=== PATIENT | female | born 1965 | race Caucasian/White ===

== ENCOUNTER → 2018-12-16 | Outpatient (CLI) | payer MEDICARE, MEDICAID ==
--- NOTE | 2018-12-16 09:42 | Diagnostic Imaging Report ---
PROCEDURE: MRI lumbar spine. TECHNIQUE: Multiplanar, multisequence MRI of the lumbar spine was performed without contrast. INDICATION: Back pain, left hip pain, groin pain, previous surgery. No priors. Posterior and interbody fusion with unilateral right-sided pedicular screws at L2-L3 and L4 have been performed. Anterior and interbody fusion at the L5-S1 level performed. Lower thoracic cord and conus appeared normal. The nerves of the cauda equina normally dispersed. There is no paravertebral mass, hemorrhage or fluid collection. T12-L1: This level and disc normal, there is no stenosis. L1-L2: There is disc desiccation, loss of disc stature, bulging disc material somewhat eccentric to the left without substantial foraminal or recess stenosis, the spinal canal widely patent. L2-L3: Osteophyte disc material results in at least mild degree of left-sided foraminal stenosis, the right foramen is widely patent and the spinal canal widely patent. L3-L4: Left-sided endplate osteophytes and disc material at least mildly stenosed the left neural foramen. The right foramen is widely patent. The spinal canal and recesses widely patent. L4-L5: Bulging disc material and mild endplate osteophytes result in mild left and mild to moderate right foraminal stenosis, the spinal canal widely patent. L5-S1: There is no appreciable stenosis of the canal, foramen or lateral recesses. IMPRESSION: 1. A multilevel posterior interbody and anterior fusions are aligned anatomically, no marrow edema fluid collection or acute osseous pathology. 2. No substantial canal stenosis, mild to moderate degrees of multilevel foraminal narrowing listed level by level above. Dictated by: Dictated on workstation # [id number]
== END ==
LOC: RAD 07:44
PROVIDERS: ATTEND Physician Assistant
DX: M48.061 Spinal stenosis, lumbar region without neurogenic claudication (principal); M25.78 Osteophyte, vertebrae; M51.26 Other intervertebral disc displacement, lumbar region; M51.36 Other intervertebral disc degeneration, lumbar region; Z98.1 Arthrodesis status
CPT/HCPCS: 72148

== ENCOUNTER → 2019-12-16 | Outpatient (CLI) | payer MEDICARE, MEDICAID | LOC: LABNPT 15:44 | PROVIDERS: ATTEND Family Medicine | DX: R30.9 Painful micturition, unspecified (principal) | CPT/HCPCS: 87088 ==

== ENCOUNTER → 2020-03-22 | Outpatient (CLI) | payer MEDICARE ==
[2020-03-22 08:55] LABS: ALKALINE PHOSPHATASE 79 U/L (40-136); BILIRUBIN,TOTAL 0.3 MG/DL (0.1-1.0); BUN/CREATININE RATIO 20; CALCIUM 10.1 MG/DL (8.5-10.1); CARBON DIOXIDE 30 MMOL/L (21-32); CHLORIDE 98 MMOL/L (98-107); CREATININE SERUM 0.65 MG/DL (0.60-1.30); GFR ESTIMATED > 60; GLUCOSE 89 MG/DL (70-105); POTASSIUM 4.5 MMOL/L (3.6-5.0); SODIUM 139 MMOL/L (135-145)
[2020-03-22 08:56] LABS: ALANINE AMINOTRANSFERASE 9 U/L (0-55); ALBUMIN 4.9 GM/DL (3.2-4.5); TOTAL PROTEIN 7.8 GM/DL (6.4-8.2)
[2020-03-22 10:27] LABS: BASOPHILS % (AUTO) 2 % (0-10); EOSINOPHILS % (AUTO) 1 % (0-10); HEMATOCRIT 43 % (35-52); LYMPHOCYTES % (AUTO) 33 % (12-44); MEAN CORPUSCULAR HEMOGLOBIN 30 PG (25-34); MEAN CORPUSCULAR HGB CONC 33 G/DL (32-36); MEAN CORPUSCULAR VOLUME 92 FL (80-99); MEAN PLATELET VOLUME 10.4 FL (7.4-10.4); MONOCYTES % (AUTO) 8 % (0-12); NEUTROPHILS % (AUTO) 56 % (42-75); PLATELET COUNT 307 10^3/uL (130-400); RED CELL DISTRIBUTION WIDTH 12.5 % (10.0-14.5); WHITE BLOOD COUNT 6.5 10^3/uL (4.3-11.0)
[2020-03-22 10:28] LABS: BASOPHILS # (AUTO) 0.1 10^3/uL (0.0-0.1); EOSINOPHILS # (AUTO) 0.1 10^3/uL (0.0-0.3); LYMPHOCYTES # (AUTO) 2.2 X 10^3 (1.0-4.0); MONOCYTES # (AUTO) 0.5 X 10^3 (0.0-1.0); NEUTROPHILS # (AUTO) 3.7 X 10^3 (1.8-7.8)
== END ==
LOC: LAB FS 07:18
PROVIDERS: ATTEND Family Medicine
DX: Z00.00 Encounter for general adult medical examination without abnormal findings (principal)
CPT/HCPCS: 36415; 80053; 85025

== ENCOUNTER → 2020-11-01 | Outpatient (CLI) | payer MEDICARE, MEDICAID ==
[~2020-11-01] MED LIST: GADOBUTROL 7.5 MMOL/7.5 ML (GADAVIST) VIAL IV ONE
--- NOTE | 2020-11-01 10:54 | Diagnostic Imaging Report ---
PROCEDURE: MRI lumbar spine with and without contrast. TECHNIQUE: Multiplanar, multisequence MRI of the lumbar spine was performed with and without contrast. INDICATION: Chronic low back pain and prior history of lumbar spine surgeries. COMPARISON: Comparison is made with prior MRI from 12/16/2018. FINDINGS: Posterior and interbody fusion with unilateral right-sided pedicle screws extend from L2 through L4. This does create moderate artifact. There is anterior interbody fusion at L5-S1. Vertebral body heights are maintained. No acute compression fracture is identified. There is some loss of height and signal intensity through L1-L2 disc as well as L4-L5 disc, compatible with degenerative disc disease. Conus is unremarkable at L1. T12-L1: Central canal and neuroforamina are widely patent. L1-L2: Central canal is widely patent. Left posterolateral broad-based disc/osteophyte complex is again noted which does result in some mild neuroforaminal narrowing. Right neuroforamen is patent. L2-L3: Mild left-sided neuroforaminal narrowing due to disc/osteophyte complex is again noted and similar to prior exam. Right neuroforamen and central canal are widely patent. L3-L4: Mild left neuroforaminal narrowing due to disc/osteophyte complex is noted, similar to prior exam. Right neuroforamen and central canal are widely patent. L4-L5: Disc/osteophyte complex does produce moderate right and mild left neuroforaminal stenosis, similar to prior exam. Central canal is patent. L5-S1: Central canal is widely patent. Neuroforamina appear widely patent. No abnormal enhancement is identified following contrast administration. Paraspinous tissues are unremarkable. IMPRESSION: Extensive postop changes through the lumbar spine, as described. There is multilevel neuroforaminal narrowing, described level by level above. Overall appearance is similar to exam from 12/16/2018. There is no central canal stenosis. No acute compression fracture is seen. No abnormal enhancement is identified. Dictated by: Dictated on workstation # [id number]
== END ==
LOC: RAD 08:00
PROVIDERS: ATTEND Family Medicine
DX: M48.062 Spinal stenosis, lumbar region with neurogenic claudication (principal); M25.78 Osteophyte, vertebrae
CPT/HCPCS: 72158

== ENCOUNTER → 2021-04-23 | Outpatient (CLI) | payer MEDICARE | LOC: LAB FS 09:55 | PROVIDERS: ATTEND Family Medicine | DX: M25.50 Pain in unspecified joint (principal) | CPT/HCPCS: 36415; 86038; 86431 ==

== ENCOUNTER → 2021-12-13 | Outpatient (CLI) | payer MEDICARE ==
[2021-12-13 22:12] LABS: AMPHETAMINES URINE QUAL DS Negative (Negative); BARBITURATES URINE QUAL DS Negative (Negative); BENZODIAZEPINE URINE QUAL DS Positive (Negative)
== END ==
LOC: LABNPT 14:55
PROVIDERS: ATTEND Family Medicine
DX: Z02.83 Encounter for blood-alcohol and blood-drug test (principal)
CPT/HCPCS: 80307

== ENCOUNTER → 2021-12-27 | Outpatient (CLI) | payer MEDICARE, OTHER ==
--- NOTE | 2021-12-27 10:58 | Diagnostic Imaging Report ---
INDICATION: Lower back pain. History of multiple spinal surgeries. COMPARISON: None FINDINGS: Frontal and lateral radiographic views of the lumbar spine were obtained and show postsurgical changes of previous fusion. Right-sided interpedicular screws are identified and appear well-seated. Posterior fusion jay is intact. Intervertebral disc spacers are also identified at L2-L3 and L3-L4 and appear appropriately positioned as well. Patient is also status post previous anterior fusion with intervertebral disc spacer placement at L5-S1. Hardware at this level appears appropriate. Static alignment of the lumbar spine shows slight dextro scoliotic deformity. AP static alignment, however is maintained. There is no evidence of jumped facets. Vertebral bodies are partially obscured secondary to overlying bowel gas on the lateral view, but vertebral body heights appear maintained. There is no convincing evidence of acute fracture. IMPRESSION: 1. Postoperative changes lumbar spine as described above. 2. No evidence of acute fracture or dislocation. Dictated by: Dictated on workstation # [id number]
== END ==
LOC: RAD 09:46
PROVIDERS: ATTEND Family Medicine
DX: Z02.71 Encounter for disability determination (principal); M54.50 Low back pain, unspecified; Z98.1 Arthrodesis status
CPT/HCPCS: 72100

== ENCOUNTER → 2023-04-01 | Outpatient (CLI) | payer MEDICARE, OTHER ==
--- NOTE | 2023-04-01 09:25 | Diagnostic Imaging Report ---
PROCEDURE: MRI lumbar spine. TECHNIQUE: Multiplanar, multisequence MRI of the lumbar spine was performed without contrast. INDICATION: Chronic lower back pain. Previous surgeries. COMPARISON: 11/01/2020 FINDINGS: Patient is status post previous 360 fusion of L1-L3. Unilateral posterior fusion changes are present on the right. Patient is also status post previous anterior fusion of L5-S1. Evaluation and integrity of the hardware is suboptimal given MR modality and metallic separability artifact, AP static alignment is maintained. There is mild dextroscoliotic deformity. There is no significant anteroretrolisthesis. There is no evidence of jumped facets. Vertebral body heights are maintained. There is no acute fracture. Marrow signal demonstrates MODIC type endplate changes at L4-L5, but is otherwise unremarkable. There is also intervertebral disc height loss with broad-based posterior disc bulge at this level. Visualized portions of distal cord are unremarkable. Conus terminates approximately the L1 level. No abnormal intrathecal filling defects are seen. Pre and paravertebral soft tissue structures are unremarkable. Axial images demonstrate the following: T12-L1: There is no large disc bulge or focal protrusion. There is no significant spinal canal or neuroforaminal stenosis. L1-L2: There is broad-based posterior disc osteophyte complex formation. As a result, there is mild narrowing of the spinal canal and moderate stenosis of left neuroforamen. Right neuroforamen is unremarkable. L2-L3: Postsurgical changes as above. There is no large disc bulge or focal protrusion. There is no significant spinal canal or neuroforaminal stenosis. L3-L4: Postsurgical changes as above. Endplate osteophyte formations are noted asymmetrically on the left. This results in minimal narrowing of the left neuroforamen. There is also minimal asymmetric narrowing of the spinal canal. Right neuroforamen is unremarkable. L4-L5: There is broad-based posterior disc bulge eccentric to the right. There is also bilateral ligamentum flavum laxity and facet arthropathy. As a result, there is moderate stenosis of the right neuroforamen and mild to moderate stenosis on the left. There is also moderate narrowing of the spinal canal. L5-S1: Postsurgical changes as above. There is bilateral facet arthropathy, but no significant spinal canal or neuroforaminal stenosis. IMPRESSION: 1. Postsurgical changes to the lumbar spine as described above. Again, evaluation and integrity of the hardware is suboptimal given MR modality and metallic susceptibility artifact, but static alignment is maintained. 2. No acute fracture dislocation. 3. Multilevel degenerative changes greatest at the L4-L5 level as above. Dictated by: Dictated on workstation # [id number]
== END ==
LOC: RAD 08:07
PROVIDERS: ATTEND Family Medicine
DX: M51.37 Other intervertebral disc degeneration, lumbosacral region (principal); M48.062 Spinal stenosis, lumbar region with neurogenic claudication; M47.816 Spondylosis without myelopathy or radiculopathy, lumbar region; M41.86 Other forms of scoliosis, lumbar region; M25.78 Osteophyte, vertebrae; M48.061 Spinal stenosis, lumbar region without neurogenic claudication; M51.26 Other intervertebral disc displacement, lumbar region; M47.817 Spondylosis without myelopathy or radiculopathy, lumbosacral region; Z98.1 Arthrodesis status
CPT/HCPCS: 72148